=== PATIENT | female | born 1990 | race Caucasian/White ===

== ENCOUNTER 2017-07-11 12:07 | Inpatient (IN) | payer OTHER ==
[2017-07-11] MEDS ORDERED: PROMETHAZINE HCL 25 MG/1 ML VIAL IVPUSH ONE (13:23)
[2017-07-11] MEDS ORDERED: BUTORPHANOL TARTRATE 1 MG/ML VIAL IVPB ONE (13:23)
[2017-07-11 13:24] VITALS: BMI 42.0
[2017-07-11] MEDS ORDERED: DEXTROSE 5%-LACTATED RINGERS 1,000 ML IV SCH (13:30)
[2017-07-11] MEDS ORDERED: DINOPROSTONE 10 MG VAGINAL SUPPOSITORY VG ONE (13:30)
[2017-07-11 14:03] LABS: BASO % 0.6 % (0-2.0); EOS % 4.3 % (0-4.5); HEMATOCRIT 37.6 % (32.4-45.2); LYMPH % 20.7 % (8-40); MCH 26.4 pg (25.7-33.7); MCHC 31.9 g/dl (32.0-36.0); MEAN CELL VOLUME 82.9 fl (80-96); MEAN PLT VOLUME 11.9 fl (7.5-11.1); MONO % 3.7 % (3.8-10.2); NEUT % 70.7 % (42.8-82.8); PLATELET COUNT 121 K/MM3 (134-434); RBC 4.53 M/mm3 (3.60-5.2); RDW 15.7 % (11.6-15.6); WHITE BLOOD COUNT 9.4 K/mm3 (4.0-10.0)
[2017-07-11 14:18] LABS: INR 0.9 (0.82-1.09); PROTHROMBIN TIME (PATIENT) 10.2 SEC (9.98-11.88)
[2017-07-11 14:20] LABS: ACTIVATED PTT 27.7 SECONDS (26.9-34.4)
--- NOTE | 2017-07-11 14:26 | HP ---
Past Medical History - Primary Care Physician PCP:: Karen Kimball - Admission Chief Complaint: 27 yrs , 39 weeks by dates & 38.3/7 weeks by sono is recommended delivery by MFM due to Oligohydramnios & SGA . 07/11/17 sono , 38.3 weeks GA 34.1 wks by sono today Bpp 6/8(FT 2, FM-2, BM2 AF 0) TABITHA 4.1 cm (oligo ) , , EFW 5'.0"( 2279gm, < 10 %tile ),Vx, Post placenta , Umblical artery dopplers normal History of Present Illness: PNC at [address] [place] [address] .Wt gain 18 lbs Pn work Up 01/17/17 Pap nilm, gc/ct neg, O pos, Rpr nr, Rubella immune, Hbsag neg , Hiv neg, Sickle neg, Lead neg 04/24/17 1 hr Gtt 98, Quantiferon neg, Rpr nr 07/05/17 Gbs neg, gc/ct neg, Hiv neg, Pt was followed by MFM for growth serial sonograms NT screen was not done , Quad screen was neg Since ( 33.1 weeks, tabitha 8.1 cm, efw 14 %tile ) she was followed closely for growth, bpp 06/21 TABITHA 5.6 cm, bpp 8/8 06/25/17 TABITHA 5.7 cm, Efw 11%tile 06/27/17 36.4 wks TABITHA 6.7cm 06/29/17 TABITHA 6.3 cm, EFW 11%tile growth 07/03/17 Tabitha 6.7 cm bpp8/8 History Source: Patient, Medical Record Limitations to Obtaining History: No Limitations - Past Medical History MEDICAL CHIEF TECHNICIAN: No: CVA, Migraine, Seizure Cardiovascular: No: HTN, Murmur Pulmonary: No: Asthma Gastrointestinal: Yes: Constipation Renal/: No: UTI Reproductive: Yes: Other (h/o abn pap3 & 08/26/15 pap LSIL. Coplposcopy , unsatisfactory) ...: 4 ...Para: 3 ...Term: 3 ...: 0 ...Spon : 0 ...Induced : 0 ...Multiple Gestation: 0 ...LMP: 10/07/16 ... Weeks Gestation by Dates: 39.0 ...EDC by Dates: 07/17/17 ...EDC by Sono: 07/21/17 Additional OB History: G1 02/17/2007 40 weeks in [facility]. G2 10/30/2012 40 weeks in [facility]. G3 01/03/2016 37.6 weeks [facility] Infectious Disease: No: AIDS, HIV, STD's, Tuberculosis Psych: No: Addictions, Anxiety, Bipolar, Depression, Panic, Schizophrenia Endocrine: No: Diabetes Mellitus, Hypothyroidism - Past Surgical History Past Surgical History: Yes: None Hx Myomectomy: No Hx Transabdominal Cerclage: No - Smoking History Smoking history: Never smoked Have you smoked in the past 12 months: No Aproximately how many cigarettes per day: 0 - Alcohol/Substance Use Hx Alcohol Use: No History of Substance Use: reports: None - Social History History of Recent Travel: No Home Medications - Allergies Allergies/Adverse Reactions: Allergies Allergy/AdvReac Type Severity Reaction Status Date / Time No Known Allergies Allergy Verified 07/11/17 13:48 - Home Medications Home Medications: Ambulatory Orders Ferrous Sulfate 325 mg PO DAILY 07/11/17 Vitamins (Sjr) - 1 tab PO DAILY 07/11/17 Physical Exam - Maternity Vital Signs: Vital Signs Temperature 97.9 F 07/11/17 13:00 Pulse Rate 79 07/11/17 13:00 Respiratory Rate 18 07/11/17 13:00 Blood Pressure 132/76 07/11/17 13:00 O2 Sat by Pulse Oximetry (%) Selected Entries 07/11/17 12:15 Weight 230 lb Constitutional: Yes: Well Nourished, Obese Eyes: Yes: WNL HENT: Yes: WNL Neck: Yes: WNL Cardiovascular: Yes: WNL, Regular Rate and Rhythm Lungs: Clear to auscultation Breast(s): Yes: WNL - Abdominal Exam/OB Fundal Height: 35 Number of Fetuses: Single Presentation: Vertex Contractions: No Monitor Mode: External Heart Rate (range): 130 Category: I Accelerations: Uniform Decelerations: None - Vaginal Exam/OB Vaginal Bleediing: No Speculum Exam: No Dilatation (cm): close Effacement (%): 50 Amniotic Membrane Status: Intact Presentation: Vertex/Position (exam at 1.30 PM) Station: -3 - Physical Exam Musculoskeletal: Yes: WNL Extremities: Yes: WNL. No: Calf Tenderness Edema: No Integumentary: Yes: WNL Deep Tendon Reflex Grade: Normal +2 Psychiatric: Yes: WNL, Alert, Oriented - Labs Lab Results: CBC, BMP 07/11/17 13:58 Laboratory Tests 07/11/17 07/11/17 13:58 13:58 PT with INR 10.20 INR 0.90 PTT (Actin FS) 27.7 Sodium 140 Potassium 3.8 Chloride 107 Carbon Dioxide 21 Anion Gap 12 BUN 7 Creatinine 0.5 L Random Glucose 114 H Calcium 9.2 Hemorrhage Risk Assessment - Risk Factors Medium Risk Factors: Yes: Obesity (BMI >40) Risk Score: 1 Risk Level: Medium Risk Problem List - Problems (1) 38 weeks gestation of Code(s): Z3A.38 - 38 WEEKS GESTATION OF (2) Oligohydramnios in third trimester Code(s): O41.03X0 - OLIGOHYDRAMNIOS, THIRD TRIMESTER, NOT APPLICABLE OR UNSP (3) Small for gestational age fetus Code(s): AKF7370 - (4) Elective induction of labor planned Code(s): KOO8435 - (5) Obesity affecting Code(s): O99.210 - OBESITY COMPLICATING , UNSPECIFIED TRIMESTER Qualifiers: Trimester: unspecified trimester Qualified Code(s): O99.210 - Obesity complicating , unspecified trimester Assessment/Plan 27 yrs , 38.3 weeks by sono, diagnosed sga <10 %tile, Tabitha 41 cm( oligohydramnios), obese, is recommende delivery by MFM GBS neg Plan cervidil induction trial of labor
[2017-07-11 14:34] LABS: ANION GAP 12 (8-16); BLOOD UREA NITROGEN 7 mg/dL (7-18); CALCIUM 9.2 mg/dL (8.5-10.1); CHLORIDE 107 mmol/L (98-107); CO2 21 mmol/L (21-32); CREATININE 0.5 mg/dL (0.55-1.02); GLUCOSE,RANDOM 114 mg/dL (74-106); POTASSIUM 3.8 mmol/L (3.5-5.1); SODIUM 140 mmol/L (136-145)
[2017-07-11] MEDS ORDERED: ONDANSETRON 4 MG/2 ML VIAL IVPUSH PRN (15:47)
[2017-07-11] MEDS ORDERED: IBUPROFEN 800 MG/8 ML IJ IVPB PRN ×2 (15:48→17:57)
[2017-07-11] MEDS ORDERED: METOCLOPRAMIDE HCL INJECTION 10 MG/2 ML VIAL IVPUSH ONE (15:48)
--- NOTE | 2017-07-11 16:02 | PN ---
Progress Note (short form) - Note Progress Note: 3.30 PM : FHR tracing noted to be catg -2 since 2.30 pm . FHR base line 145 bpm, recurrent variable decels are noted , from 145 to 110 or 100 bpm for 20-30 sec no uc are noted patient position is changed from Rt to Lt lateral position , decels continued cervidil is removed . . no change in cervix Plan abandon trial of labor pt exolained delivery by primary c/section is prudent, R/B/A explained , she agreed Delivery by Primary c/section Selected Entries 07/11/17 07/11/17 14:00 15:00 Temperature 98.0 F Pulse Rate 86 95 H Blood Pressure 129/82 129/84 Problem List - Problems (1) 38 weeks gestation of Code(s): Z3A.38 - 38 WEEKS GESTATION OF (2) Oligohydramnios in third trimester Code(s): O41.03X0 - OLIGOHYDRAMNIOS, THIRD TRIMESTER, NOT APPLICABLE OR UNSP (3) Small for gestational age fetus Code(s): QJD1189 - (4) Elective induction of labor planned Code(s): HRE8062 - (5) Obesity affecting Code(s): O99.210 - OBESITY COMPLICATING , UNSPECIFIED TRIMESTER Qualifiers: Trimester: unspecified trimester Qualified Code(s): O99.210 - Obesity complicating , unspecified trimester
[2017-07-11] MEDS ORDERED: morphine SULFATE/Preservative Free 0.5 MG/ML (1cc Syringe) ONE (16:24)
[2017-07-11] MEDS ORDERED: CITRIC ACID/SODIUM CITRATE 30 ML UNIT-DOSE CUP PO ONE (16:30)
[2017-07-11] MEDS ORDERED: morphine SULFATE/Preservative Free 0.5 MG/ML (1cc Syringe) EP ONE (16:30)
[2017-07-11] MEDS ORDERED: ELECTROLYTE-148 SOLN 500 ML IV ONE (16:30)
[2017-07-11] MEDS ORDERED: ceFAZolin SODIUM 1 GM VIAL ONE (16:40)
[2017-07-11] MEDS ORDERED: OXYTOCIN 20 UNITS in 0.9% NS 20 UNIT/1,000 ML INFUS.BAG IV ONE ×2 (16:45→19:32)
[2017-07-11] MEDS ORDERED: OXYTOCIN 10 UNITS/ML VIAL ONE (16:48)
[2017-07-11] MEDS ORDERED: ELECTROLYTE-148 SOLN 1,000 ML IV SCH (17:15)
[2017-07-11] MEDS ORDERED: MIDAZOLAM HCL 2 MG/2 ML SINGLE DOSE VIAL ONE (17:18)
[2017-07-11] MEDS ORDERED: KETOROLAC TROMETHAMINE 30 MG/1 ML VIAL ONE (17:19)
[2017-07-11] MEDS ORDERED: SENNOSIDES/DOCUSATE COMBO (SENNA PLUS) TABLET (UD) PO PRN (17:39)
[2017-07-11] MEDS ORDERED: METHYLERGONOVINE MALEATE 0.2 MG/1 ML AMP IM PRN (17:39)
[2017-07-11] MEDS ORDERED: OXYTOCIN 20 UNITS in 0.9% NS 20 UNIT/1,000 ML INFUS.BAG IV SCH (17:45)
--- NOTE | 2017-07-11 18:08 | PN ---
Delivery - Delivery Section: Primary, Low Flap Transverse (Indication 38.3 weeks, Non Reassuring FHR,Oligohydramnios , SGA) Type of Anesthesia: Spinal EBL (cc): 800 (100 ml meme color willingham output ) Delivery, Single - Stages of Labor Date of Delivery: 07/11/17 Time of Delivery: 16:51 Time Placenta Delivered: 16:54 Placenta: Yes: Manual Removal, Uterine Exploration - Condition of Infant Merchandiser Seasonal/Knitter Wire Mesh Present: Yes Name: Venessa Thorne Infant Gender: Male Weight: 4 lb 14 oz Position: Right, OA Total Hours ROM (Hrs/Mins): 4 MINUTES - 1 Minute Total Score: 9 5 Minutes Total Score: 9 - [place] Feeding Plan Initial Plan: Exclusive throughout hospitalization Remarks - Remarks Remarks: 27 yrs , 38.3 weeks by sono, 39 weeks by dates , admitted for delivery as rper recommendations by Dr Villar ([facility]) due to Oligohydramnios ( TABITHA 4.1 cm ) , Bpp6/8, SGA < 10 %tile GBS neg . pt Obese care at 2, Krysta grubbs cervidil inserted for induction of labor for trial of vaginal delivery cervidil removed after 2 hrs of insertion due to repeated variable decelration Cat -2 tracing Intraop course uneventful
--- NOTE | 2017-07-11 18:15 | OP ---
Operative Note - Note: Operative Date: 07/11/17 Pre-Operative Diagnosis: 38.3 weeks IUP , Non Reassuring FHR,, Oligohydramnios, SGA Operation: Primary LFTC/Section Findings: 16.51 hr Baby Boy, Vx Lai position, 9/9 , Wt 4'14", Ht 16" Both tubes & ovaries normal Amniotic flluid very small amount Both Tubes & ovaries normal Dr Thorne Medical Assistant Secretary present in the room Post-Operative Diagnosis: Same as Pre-op Surgeon: Karen Kimball Triage Registered Nurse: Anuel Key Anesthesiologist/LOCAL TANKER TRUCK DRIVER: Arun Martinez Anesthesia: Spinal Specimens Removed: cord segment for blood gases. cord blood. placenta Estimated Blood Loss (mls): 800 Drains, Volume Out (mls): 100 (willingham drainage, , meme colr) Fluid Volume Replaced (mls): 1,500 (2 gm IV ancef pre incision given ) Operative Report Dictated: Yes
[2017-07-11 18:26] LABS: ARTERIAL BLOOD GAS BASE EXCESS -2.1 meq/l (-2-2)
[2017-07-11 18:38] LABS: VENOUS PC02 55.9 mmHg (38-52); VENOUS PH 7.28 (7.32-7.42); VENOUS PO2 20.4 mmHg (28-48)
[2017-07-11 18:41] LABS: ARTERIAL BLOOD GAS pH 7.24 (7.35-7.45)
[2017-07-11 18:42] LABS: ARTERIAL BLD GAS O2 SATURATION 10.4 % (90-98.9); ARTERIAL BLOOD GAS PO2 11.3 mmHg (80-100)
[2017-07-12] MEDS: CEFAZOLIN 1 GM PUSH 1 GM/10 ML DISP.SYRIN IVPUSH SCH ×3 (01:44→17:19)
[2017-07-12] MEDS ORDERED: oxyCODONE HCL 5 MG TABLET PO PRN ×2 (08:00)
[2017-07-12 08:01] LABS: BASO % 0.3 % (0-2.0); EOS % 2.6 % (0-4.5); HEMATOCRIT 31.5 % (32.4-45.2); HEMOGLOBIN 10.3 GM/dL (10.7-15.3); LYMPH % 19.8 % (8-40); MCHC 32.6 g/dl (32.0-36.0); MEAN CELL VOLUME 82.8 fl (80-96); MEAN PLT VOLUME 11.7 fl (7.5-11.1); MONO % 4.3 % (3.8-10.2); PLATELET COUNT 91 K/MM3 (134-434); RDW 15.7 % (11.6-15.6); WHITE BLOOD COUNT 9.3 K/mm3 (4.0-10.0)
--- NOTE | 2017-07-12 09:01 | OP ---
DATE OF OPERATION: 07/11/2017 PREOPERATIVE DIAGNOSIS: A 38.3-week , non-reassuring heart, oligohydramnios, and small for gestational age. OPERATION DONE: Primary low flap transverse section. SURGEON: Karen Kimball MD LDR RN SURGEON: MAXIME Briscoe ANESTHESIOLOGIST: Arun Martinez MD ANESTHESIA: Spinal. FINDINGS: This is a 27-year-old 4 para 3-0-0-3, obese, BMI 42.1, who was recommended by [facility], Dr. Rajan, the delivery due to the SGA growth _10___ _ percentile and severe oligohydramnios. TABITHA was 4.1. Biophysical profile was 6 out of 8. Cervidil was inserted for induction, and post Cervidil repeated variable decelerations were noted. Cervidil was removed 2 hours after the insertion. Cervix was closed, and patient was not in labor. PROCEDURE: Patient was taken to the operating room table. Abdomen was shaved, prepped. Salmeron catheter was placed. Spinal anesthesia was given. She was placed in the supine position. Abdomen was painted and draped in the usual manner. A Pfannenstiel incision was made. The skin and subcutaneous tissue were entered. Anterior rectus sheath was incised transversely. Bleeding points were clamped and cauterized. The rectus muscle was from the rectus sheath. Parietal peritoneum was opened vertically, and then, the lower uterine segment was isolated. Omentum was packed with lap pads. Bladder flap was opened up, and the bladder was pushed down. Lower uterine segment was incised transversely. Amniotic fluid was clear, but very small amount. Baby was delivered at 1651 hours from MARLENE position, a baby boy. was 9, 9. Cord was clamped, cut, and cord blood was collected, and also, the cord segment was sent for cord blood gasses. Placenta was sent for pathology examination. Uterine cavity was cleaned, and uterus was brought out of the incision. Then, both tubes and ovaries were normal. Closure of the uterine incision was done in 2 layers. The first layer was closed with a Biosyn 0 continuous locking suture, second layer was closed with a Biosyn 0 continuous intermittently locking suture. Hemostasis was noted. Then, the bladder peritoneum was closed with a Biosyn 0 suture. Uterus was placed back into the peritoneal cavity. Irrigation was done, and the lap pad was removed from the abdominal cavity. Uterus was placed back into the peritoneal cavity. Then, the closure of the abdomen was done before the sponge, instrument, and needle counts were correct. Parietal peritoneum was closed with Vicryl 0 sutures. Muscles were approximated together with a Vicryl 0 interrupted sutures. Anterior rectus sheath was closed with Vicryl 0 continuous sutures. Hemostasis was checked underneath the anterior rectus sheath flaps before closure of it, and also hemostasis was checked with subcutaneous tissue. Subcutaneous tissue was approximated with 0 Biosyn interrupted sutures. The skin was approximated with vanesa. Pressure dressing was given, and the blood clots were removed from the vagina. Patient tolerated the procedure well, and she was transferred to the recovery room in stable condition. She received 2 g of IV Ancef prior to the incision, and Dr. Venessa Thorne, the kiln firer, was present in the room. Estimated blood loss was 800 mL. The urine output intraoperatively was 100 mL Caitlin [id number] MTDD
[2017-07-12] MEDS: PRENATAL VITAMINS W/ FOLIC ACID TABLET (FP) PO SCH (09:14)
--- NOTE | 2017-07-12 09:25 | PN ---
Post Progress Note - Subjective Subjective: c/o itching incision pain scale 3/10 Post Day: 1 Type of Delivery: Primary C/S Vital Signs: Vital Signs Temperature 98.8 F 07/12/17 06:00 Pulse Rate 90 07/12/17 06:00 Respiratory Rate 18 07/12/17 06:00 Blood Pressure 122/71 07/12/17 06:00 O2 Sat by Pulse Oximetry (%) 98 07/11/17 21:00 Breast Exam: Yes: Soft, Other (plans to Bf ). No: Engorged Uterus: Yes: Fundus Firm, Fundus below umbilicus, Non-tender Incision: Yes: Dressing dry and intact. No: Oozing Abdomen/GI: Yes: Abdomen soft (bs active ), Abdominal Distention (obese abdomen ), Tolerating PO (water,). No: Tender, Passing flatus Lochia: Yes: Rubra Lochia, amount: Moderate Extremities: Yes: Calves non-tender Perineum: Yes: Intact Activity: Other (scd & willingham in situ ) - Labs Labs: CBC WBC 9.3 K/mm3 (4.0-10.0) 07/12/17 06:30 RBC 3.80 M/mm3 (3.60-5.2) 07/12/17 06:30 Hgb 10.3 GM/dL (10.7-15.3) L D 07/12/17 06:30 Hct 31.5 % (32.4-45.2) L D 07/12/17 06:30 MCV 82.8 fl (80-96) 07/12/17 06:30 MCH 27.0 pg (25.7-33.7) 07/12/17 06:30 MCHC 32.6 g/dl (32.0-36.0) 07/12/17 06:30 RDW 15.7 % (11.6-15.6) H 07/12/17 06:30 Plt Count 91 K/MM3 (134-434) L D 07/12/17 06:30 MPV 11.7 fl (7.5-11.1) H 07/12/17 06:30 Neutrophils % 73.0 % (42.8-82.8) 07/12/17 06:30 Lymphocytes % 19.8 % (8-40) 07/12/17 06:30 Monocytes % 4.3 % (3.8-10.2) 07/12/17 06:30 Eosinophils % 2.6 % (0-4.5) 07/12/17 06:30 Basophils % 0.3 % (0-2.0) 07/12/17 06:30 Other Findings, Remarks: Rs cta urine out put 350 ml Problem List - Problems (1) 38 weeks gestation of Code(s): Z3A.38 - 38 WEEKS GESTATION OF (2) Oligohydramnios in third trimester Code(s): O41.03X0 - OLIGOHYDRAMNIOS, THIRD TRIMESTER, NOT APPLICABLE OR UNSP (3) Small for gestational age fetus Code(s): FVE2603 - (4) Elective induction of labor planned Code(s): [id number] - (5) Obesity affecting Code(s): O99.210 - OBESITY COMPLICATING , UNSPECIFIED TRIMESTER Qualifiers: Trimester: unspecified trimester Qualified Code(s): O99.210 - Obesity complicating , unspecified trimester Assessment/Plan stable s/p primary c/section plan ct po care incentive spirometer use encourage ambulate po liquids
--- NOTE | 2017-07-12 09:42 | PN ---
Progress Note (short form) - Note Progress Note: Anesthesia/pain Pt seen and examined S:alert and awake comfortable O: Vital Signs Temperature 98.8 F 07/12/17 06:00 Pulse Rate 90 07/12/17 06:00 Respiratory Rate 18 07/12/17 06:00 Blood Pressure 122/71 07/12/17 06:00 O2 Sat by Pulse Oximetry (%) 98 07/11/17 21:00 CBC, BMP 07/12/17 06:30 07/11/17 13:58 A/P: Current Active Problems 38 weeks gestation of (Acute) Antepartum non-reassuring heart rate or rhythm affecting care of mother ( Acute) Delivery by emergency section (Acute) Elective induction of labor planned (Acute) Obesity affecting (Acute) Oligohydramnios in third trimester (Acute) Small for gestational age fetus (Acute) s/p csection Doing well post op Continue current care Sheldon Cornejo MD
[2017-07-12] MEDS: ENOXAPARIN NA (PORCINE) 40 MG/0.4 ML DISP.SYRIN SQ SCH (10:49)
[2017-07-12] MEDS: IBUPROFEN 600 MG TABLET (FP) PO PRN (15:30)
[2017-07-12] MEDS: SIMETHICONE 80 MG TAB.CHEW (FP) PO PRN (15:30)
[2017-07-12] MEDS: ACETAMINOPHEN 325 MG TABLET (FP) PO PRN (15:30)
[2017-07-12] MEDS: FERROUS SO4 325 MG TABLET (FP) PO SCH (17:19)
[2017-07-12] MEDS ORDERED: BISACODYL 10 MG SUPP.RECT RC PRN (17:40)
[2017-07-13] MEDS: SIMETHICONE 80 MG TAB.CHEW (FP) PO PRN ×3 (01:04→21:42)
[2017-07-13] MEDS: IBUPROFEN 600 MG TABLET (FP) PO PRN ×3 (01:04→21:42)
[2017-07-13] MEDS: ACETAMINOPHEN 325 MG TABLET (FP) PO PRN ×3 (01:06→21:44)
--- NOTE | 2017-07-13 07:59 | PN ---
Progress Note (short form) - Note Progress Note: pod 2 , s/p c/s , passing gas , ambulating CBC, BMP 07/12/17 06:30 07/11/17 13:58 Last Vital Signs Temp Pulse Resp BP Pulse Ox 97.9 F 85 18 127/73 98 07/12/17 22:00 07/12/17 22:00 07/12/17 22:00 07/12/17 22:00 07/11/17 21:00 abdomen soft, no distension, no cva incision dry , clean , uterus firm no calf tenderness locchia mild plan ambulate, cbc in am
[2017-07-13] MEDS: FERROUS SO4 325 MG TABLET (FP) PO SCH ×2 (09:23→17:24)
[2017-07-13] MEDS: PRENATAL VITAMINS W/ FOLIC ACID TABLET (FP) PO SCH (09:23)
[2017-07-13] MEDS: ENOXAPARIN NA (PORCINE) 40 MG/0.4 ML DISP.SYRIN SQ SCH (09:23)
[2017-07-14] MEDS: FERROUS SO4 325 MG TABLET (FP) PO SCH ×2 (08:06→17:13)
[2017-07-14] MEDS: IBUPROFEN 600 MG TABLET (FP) PO PRN ×2 (08:06→17:13)
[2017-07-14] MEDS: SIMETHICONE 80 MG TAB.CHEW (FP) PO PRN ×2 (08:06→17:13)
[2017-07-14] MEDS: ACETAMINOPHEN 325 MG TABLET (FP) PO PRN ×2 (08:07→17:13)
--- NOTE | 2017-07-14 08:07 | PN ---
Post Progress Note - Subjective Subjective: c/opain scale 4/10 voiding without difficulty. BM done Post Day: 3 Type of Delivery: Primary C/S Vital Signs: Vital Signs Temperature 98 F 07/13/17 22:00 Pulse Rate 83 07/13/17 22:00 Respiratory Rate 18 07/13/17 22:00 Blood Pressure 127/68 07/13/17 22:00 O2 Sat by Pulse Oximetry (%) 98 07/11/17 21:00 Breast Exam: Yes: Soft, Other (BF). No: Engorged Uterus: Yes: Fundus Firm, Fundus below umbilicus, Non-tender Incision: Yes: Janice intact. No: Redness, Oozing Abdomen/GI: Yes: Abdomen soft, Passing flatus, Tolerating PO (diet). No: Abdominal Distention, Tender Lochia: Yes: Rubra Lochia, amount: Moderate Extremities: Yes: Calves non-tender Perineum: Yes: Intact Activity: Ambulating - Labs Labs: CBC WBC 9.3 K/mm3 (4.0-10.0) 07/12/17 06:30 RBC 3.80 M/mm3 (3.60-5.2) 07/12/17 06:30 Hgb 10.3 GM/dL (10.7-15.3) L D 07/12/17 06:30 Hct 31.5 % (32.4-45.2) L D 07/12/17 06:30 MCV 82.8 fl (80-96) 07/12/17 06:30 MCH 27.0 pg (25.7-33.7) 07/12/17 06:30 MCHC 32.6 g/dl (32.0-36.0) 07/12/17 06:30 RDW 15.7 % (11.6-15.6) H 07/12/17 06:30 Plt Count 91 K/MM3 (134-434) L D 07/12/17 06:30 MPV 11.7 fl (7.5-11.1) H 07/12/17 06:30 Neutrophils % 73.0 % (42.8-82.8) 07/12/17 06:30 Lymphocytes % 19.8 % (8-40) 07/12/17 06:30 Monocytes % 4.3 % (3.8-10.2) 07/12/17 06:30 Eosinophils % 2.6 % (0-4.5) 07/12/17 06:30 Basophils % 0.3 % (0-2.0) 07/12/17 06:30 Problem List - Problems (1) 38 weeks gestation of Code(s): Z3A.38 - 38 WEEKS GESTATION OF (2) Oligohydramnios in third trimester Code(s): O41.03X0 - OLIGOHYDRAMNIOS, THIRD TRIMESTER, NOT APPLICABLE OR UNSP (3) Small for gestational age fetus Code(s): QDS8389 - (4) Elective induction of labor planned Code(s): [id number] - (5) Obesity affecting Code(s): O99.210 - OBESITY COMPLICATING , UNSPECIFIED TRIMESTER Qualifiers: Trimester: unspecified trimester Qualified Code(s): O99.210 - Obesity complicating , unspecified trimester (6) Non-reassuring status, delivered, current hospitalization Code(s): O75.89 - OTHER SPECIFIED COMPLICATIONS OF LABOR AND DELIVERY (7) Delivery by emergency section Code(s): O82 - ENCOUNTER FOR DELIVERY WITHOUT INDICATION Assessment/Plan stable s/p primary c/s plan ct po care discharge tomorrow.
[2017-07-14 08:25] LABS: BASO % 0.4 % (0-2.0); EOS % 4.2 % (0-4.5); HEMOGLOBIN 10.5 GM/dL (10.7-15.3); LYMPH % 21.3 % (8-40); MCH 27.2 pg (25.7-33.7); MCHC 32.8 g/dl (32.0-36.0); MEAN PLT VOLUME 11.4 fl (7.5-11.1); MONO % 3.7 % (3.8-10.2); NEUT % 70.4 % (42.8-82.8); PLATELET COUNT 114 K/MM3 (134-434); RBC 3.86 M/mm3 (3.60-5.2); RDW 16.2 % (11.6-15.6); WHITE BLOOD COUNT 7.8 K/mm3 (4.0-10.0)
[2017-07-14] MEDS: ENOXAPARIN NA (PORCINE) 40 MG/0.4 ML DISP.SYRIN SQ SCH (09:20)
[2017-07-14] MEDS: PRENATAL VITAMINS W/ FOLIC ACID TABLET (FP) PO SCH (09:20)
[2017-07-15] MEDS: IBUPROFEN 600 MG TABLET (FP) PO PRN ×2 (02:25→09:02)
[2017-07-15] MEDS: ACETAMINOPHEN 325 MG TABLET (FP) PO PRN ×2 (02:25→09:01)
[2017-07-15] MEDS: SIMETHICONE 80 MG TAB.CHEW (FP) PO PRN ×2 (02:25→09:01)
[2017-07-15] MEDS: FERROUS SO4 325 MG TABLET (FP) PO SCH (08:10)
--- NOTE | 2017-07-15 08:51 | DS ---
Physical Exam-SKIN CARE THERAPIST Vital Signs: Vital Signs Temperature 97.7 F 07/14/17 20:19 Pulse Rate 83 07/14/17 20:19 Respiratory Rate 18 07/14/17 21:00 Blood Pressure 115/70 07/14/17 20:19 O2 Sat by Pulse Oximetry (%) 100 07/14/17 21:00 Constitutional: Yes: Well Nourished, Obese Eyes: Yes: WNL HENT: Yes: WNL Neck: Yes: WNL Cardiovascular: Yes: WNL Respiratory: Yes: WNL Gastrointestinal: Yes: WNL, Normal Bowel Sounds, Abdomen, Obese, Other (bm done) . No: Distention ...Rectal Exam: Yes: WNL Renal/: Yes: WNL, Other (voiding without difficulty) ....Post : Yes: Uterus firm, Uterus non-tender, Moderate lochia rubra Breast(s): Yes: WNL (Bf & bottle feeding) Musculoskeletal: Yes: WNL Extremities: Yes: WNL. No: Calf Tenderness Edema: Yes Edema: LLE: Trace, RLE: Trace Integumentary: Yes: WNL Wound/Incision: Yes: Clean/Dry, Well Approximated, Steri Strips, Open to air, Janice Removed. No: Draining, Reddened, Bleeding Neurological: Yes: WNL, Alert, Oriented ...Motor Strength: WNL Psychiatric: Yes: WNL Labs: CBC, BMP 07/14/17 07:20 07/11/17 13:58 Delivery - Delivery Section: Primary, Low Flap Transverse (Indication 38.3 weeks, Non Reassuring FHR,Oligohydramnios , SGA) Type of Anesthesia: Spinal EBL (cc): 800 (100 ml meme color willingham output ) Delivery, Single - Stages of Labor Date of Delivery: 07/11/17 Time of Delivery: 16:51 Time Placenta Delivered: 16:54 Placenta: Yes: Manual Removal, Uterine Exploration - Condition of Accounts Payable Bookkeeper/Vp Home Health Present: Yes Name: Venessa Thorne Infant Gender: Male Weight: 4 lb 14 oz Position: Right, OA Total Hours ROM (Hrs/Mins): 4 MINUTES - 1 Minute Total Score: 9 5 Minutes Total Score: 9 - Feeding Plan Initial Plan: Exclusive throughout hospitalization Remarks - Remarks Remarks: 27 yrs , 38.3 weeks by sono, 39 weeks by dates , admitted for delivery as rper recommendations by Dr Villar ([facility]) due to Oligohydramnios ( TABITHA 4.1 cm ) , Bpp6/8, SGA < 10 %tile GBS neg . pt Obese care at 2, [address] cervidil inserted for induction of labor for trial of vaginal delivery cervidil removed after 2 hrs of insertion due to repeated variable decelration Cat -2 tracing Intraop course uneventful . post op course uneventful discharge 07/15/17 , to be followed in the clinic for pp check Discharge Summary Reason For Visit: INDUCTION OF LABOR Current Active Problems 38 weeks gestation of (Acute) Antepartum non-reassuring heart rate or rhythm affecting care of mother ( Acute) Delivery by emergency section (Acute) Elective induction of labor planned (Acute) Non-reassuring status, delivered, current hospitalization (Acute) Obesity affecting (Acute) Oligohydramnios in third trimester (Acute) Small for gestational age fetus (Acute) Condition: Stable - Instructions Diet, Activity, Other Instructions: Post Instructions DIET: Continue good diet high in protein, calcium, and iron rich foods. Drink at least eight (8) glasses of water daily in addition to other fluids. ___ Regular diet MEDICATIONS: Continue vitamins and iron as previously directed. Motrin and Tylenol may be taken for minor discomfort. ACTIVITY: Mild to moderate exercise may be started in two (2) weeks. Take frequent rest periods. Resume normal activity after six (6) week check up. WOUND CARE OF OPERATIVE SITE: Continue use of perineal bottle until vaginal discharge stops. Keep area clean. Shower daily. Keep abdominal wound dry. Report any drainage or redness to physician. Tub baths, tampons and douches are not permitted for [address] Breast feeding & or Bottle feeding BREAST CARE: (For those that are not breast feeding): If engorgement occurs: Wear tight fitting bra. Take Tylenol or Motrin for pain. Apply cold packs (ice in bags to each breast ) FAMILY PLANNING: There are many control alternatives to pursue and they should be discussed at your first office visit. You may resume sexual activity after your six (6) week check up. (Remember, breast feeding is not a contraceptive) NEXT PHYSICIAN APPOINTMENT: Be certain to call for a one (1) week appointment, unless otherwise directed. wound check Call Clinic or got to Emergency Dept if you have any of the following: Heavy vaginal bleeding Painful urination Leg pain Unusual odor noted to vaginal bleeding High fever Red streaking noted on breast Referrals: Karen Kimball MD [Staff Physician] - Disposition: HOME - Home Medications Comprehensive Discharge Medication List: Ambulatory Orders Ferrous Sulfate 325 mg PO DAILY 07/11/17 Vitamins (Sjr) - 1 tab PO DAILY 07/11/17 Acetaminophen [Tylenol .Regular Strength -] 500 mg PO Q4H PRN #30 tablet Ferrous Sulfate [Feosol] 325 mg PO BIDWM #60 tab 07/13/17 Ibuprofen [Motrin -] 600 mg PO Q4H PRN #30 tablet 07/13/17 Vitamins (Sjr) - 1 tab PO DAILY #30 tablet 07/13/17
[2017-07-15] MEDS: PRENATAL VITAMINS W/ FOLIC ACID TABLET (FP) PO SCH (09:01)
[2017-07-15] MEDS: ENOXAPARIN NA (PORCINE) 40 MG/0.4 ML DISP.SYRIN SQ SCH (09:01)
[2017-07-15 10:00] VITALS: BP 123/79; PULSE 90; TEMP 98.2
--- NOTE | 2017-07-16 15:48 | PATH ---
Surgical Pathology Report Patient Name: JANINE GARRETT Med. Rec. #: [id number] /Age/Gender: 1990 (Age: 27) / F Account: [id number] Location: [facility] OBS/QC LAB TECHNICIAN Taken: 07/11/2017 Received: 07/12/2017 Reported: 07/16/2017 Physicians: Karen Kimball M.D. Specimen(s) Received PLACENTA Clinical History , x3, history of LGSIL colposcopy 2016 Oligohydramnios, SGA, failed induction, nonreassuring heart rate Final Diagnosis PLACENTA, SECTION: 248 g THIRD TRIMESTER PLACENTA WITH TRIVASCULAR UMBILICAL CORD AND F are OCAL ACUTE MILD CHORIOAMNIONITIS. Electronically Signed Sweta Christopher M.D. Gross Description The specimen is received fresh labeled placenta and is a 248 gram, 12.0 x 11.4 x 2.3 cm. placenta with attached membranes and umbilical cord. The attached membranes are thin, thick, cloudy and insert marginally. The umbilical cord measures 8 cm. in length and averages 1.0 cm. in diameter. The cord inserts eccentrically, 2.5 cm. to the nearest margin. No true knots or strictures are identified. Cut surface of the umbilical cord reveals 3 vessels. The surface is kong-blue with moderate fibrin deposition and appropriate caliber vessels. The maternal surface is red-brown with focal defects. Sectioning reveals red-brown, spongy parenchyma. No lesions are identified. Local Truck Driver sections are submitted in three cassettes as follows: 1- membrane rolls and umbilical cord; 2-3- full thickness sections of placenta. 07/13/2017 [facility]07/13/2017
== END 2017-07-15 11:55 | disposition home or self-care (01) | DRG 540 ==
LOC: JDEL 12:07 → JLDR 12:15 → J3W 20:28
PROVIDERS: ADMIT Obstetrics & Gynecology; ATTEND Obstetrics & Gynecology
PROC: 10D00Z1 Extraction of Products of Conception, Low, Open Approach (ICD-10-PCS; principal; 2017-07-11)
DX: O76 Abnormality in fetal heart rate and rhythm complicating labor and delivery (principal); O41.03X0 Oligohydramnios, third trimester, not applicable or unspecified; O99.214 Obesity complicating childbirth; O36.5930 Maternal care for other known or suspected poor fetal growth, third trimester, not applicable or unspecified; E66.9 Obesity, unspecified; Z68.41 Body mass index [BMI] 40.0-44.9, adult; Z3A.38 38 weeks gestation of pregnancy; Z37.0 Single live birth
CPT/HCPCS: 36415; 36600; 80048; 82803; 85025; 85610; 85730; 86593; 86850; 86900; 86901; 88307-TC; 94010